=== PATIENT | male | born 1980 | race Caucasian/White ===

== ENCOUNTER 2019-04-30 17:40 | Emergency (ER) | payer BC ==
--- NOTE | 2019-04-30 18:04 | ED.PDOC ---
History of Present Illness - General Chief Complaint: Respiratory Problem Time Seen by Provider: 04/30/19 17:52 Additional Information: Patient is a 39-year-old male who presents to the ED with chief complaint of flulike symptoms since yesterday. Patient's son was just seen in another ED yesterday and diagnosed with the flu after testing. Patient indicates he has mild diffuse myalgia, nasal congestion, sore throat, and an occasional dry cough. Patient indicates his biggest concern is wondering if he has strep throat, he indicates that at this time every year he gets strep throat and is here for a strep test. Patient denies fever or any other symptoms. - History of Present Illness Allergies/Adverse Reactions: Allergies NO KNOWN ALLERGY Allergy (Verified 08/17/13 14:07) Home Medications: Ambulatory Orders Acetaminophen [Tylenol] 650 mg PO Q6H #50 tab 04/30/19 Oseltamivir Capsule [Tamiflu] 75 mg PO DAILY 10 Days #10 capsule 04/30/19 Review of Systems - Review of Systems Constitutional: Denies: chills, fever, weakness EENTM: States: see HPI Respiratory: States: cough - occasional, dry. Denies: short of breath Cardiology: States: no symptoms reported Gastrointestinal/Abdominal: States: no symptoms reported. Denies: nausea, vomiting Musculoskeletal: States: muscle pain Skin: States: no symptoms reported. Denies: rash Neurological: States: no symptoms reported All other Systems: Reviewed and Negative Family Medical History - Family History Mother Family History: No Known Physical Exam - Physical Exam General Appearance: Alert, Comfortable, No apparent distress ENT Exam: normal ENT inspection, pharynx normal Neck: non-tender, full range of motion, supple, normal inspection, trachea midline Respiratory: chest non-tender, lungs clear, normal breath sounds, no respiratory distress, no accessory muscle use Cardiovascular/Chest: normal peripheral pulses, regular rate, rhythm, no edema, no gallop, no JVD, no murmur Extremity: normal range of motion, normal inspection Neurologic: no motor/sensory deficits, alert, normal mood/affect, oriented x 3 Skin Exam: normal color, warm/dry Progress - Progress Progress: 04/30/19 18:39 The patient reassessed. Patient's strep test is negative. Patient's son was just diagnosed with the flu yesterday and patient almost certainly has the flu himself. I will discharge with Tamiflu and Tylenol anitra discussed the patient rest, plenty of fluids, and follow up with his PCP. Vital signs stable, patient NAD and appears clinically well, believe patient is safe for discharge with outpatient follow-up. Follow-up instructions, discharge instructions, return to ED warnings given. Patient voices understanding and willingness to comply with instructions as discussed. Patient will return to the ED with new or worsening symptoms. All questions answered. Patient is happy with plan. Departure - Departure Clinical Impression: Influenza Time of Disposition: 18:40 Disposition: Discharge to Home or Self Care Condition: Good Departure Forms: ED Discharge - Pt. Copy, Patient Portal Self Enrollment Instructions: Flu, Adult (DC) Referrals: GRAY JALLOH [Referring] - 1 Week Prescriptions: Acetaminophen [Tylenol] 650 mg PO Q6H #50 tab Oseltamivir Capsule [Tamiflu] 75 mg PO DAILY 10 Days #10 capsule Home Medications: Ambulatory Orders Acetaminophen [Tylenol] 650 mg PO Q6H #50 tab 04/30/19 Oseltamivir Capsule [Tamiflu] 75 mg PO DAILY 10 Days #10 capsule 04/30/19
[2019-04-30] MEDS: DEXAMETHASONE INJ 10 MG/ML VIAL IM ONE (18:21)
[2019-04-30] MEDS: IBUPROFEN 200 MG TAB PO ONE (18:22)
[2019-04-30 19:05] VITALS: BP 170/84; TEMP 99; O2SAT 99
== END 2019-04-30 19:05 | disposition home or self-care (01) ==
LOC: ER 17:40
DX: J11.1 Influenza due to unidentified influenza virus with other respiratory manifestations (principal)
CPT/HCPCS: 87070; 87880; J1100